=== PATIENT | male | born 2000 | race Caucasian/White ===

== ENCOUNTER 2020-05-03 17:18 | Emergency (ER) | payer BC ==
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
[2020-05-03 19:22] LABS: ANION GAP 12.7 mEq/L (7-13); CHLORIDE,CL 103 mmol/L (98-107); SODIUM,NA 143 mmol/L (136-145)
[2020-05-03 19:30] LABS: ACETAMINOPHEN 0 ug/mL (10-30 (Therapeutic))
== END 2020-05-03 22:07 | disposition home or self-care (01) ==
LOC: DL.ED 17:18
DX: F43.0 Acute stress reaction (principal); F43.20 Adjustment disorder, unspecified
CPT/HCPCS: 36415; 80053; 80305-QW; 80307; 81003; 83735; 84443; 85025; 99285

== ENCOUNTER 2020-06-22 21:49 | Emergency (ER) | payer BC ==
[2020-06-22 23:03] LABS: ANION GAP 13.3 mEq/L (7-13); CHLORIDE,CL 100 mmol/L (98-107); SODIUM,NA 140 mmol/L (136-145)
[2020-06-22] MEDS ORDERED: LORazepam 1 MG Tab PO ONE (23:52)
--- NOTE | 2020-06-23 00:55 | EDM.PDOCBH ---
ED HPI GENERAL MEDICAL PROBLEM - General Chief Complaint: Behavioral/Psych Stated Complaint: HIGH ANXIETY Time Seen by Provider: 06/22/20 22:05 Source of Information: Reports: Patient, Family, RN, RN Notes Reviewed History Limitations: Reports: Altered Mental Status - History of Present Illness INITIAL COMMENTS - FREE TEXT/NARRATIVE: Pt presents to ER with c/o anxiety. Patient was brought to the ER by his father. Upon interviewing the patient he is having grandiose thoughts, is paranoid, delusional, and appears to be in a manic state. Eula from the [facility] is in the department for other reasons, and was asked to come in and interview the patient with the telegraphic typewriter repairer. Also with visiting with the patient's father, the patient has been diagnosed with Schizophrenia. Patient apparently has stopped taking his medications in . Onset: Gradual - Related Data Allergies Allergy/AdvReac Type Severity Reaction Status Date / Time No Known Allergies Allergy Verified 05/03/20 17:43 Home Meds: Home Meds . [Unable to Verify Home Med List] 05/03/20 [History] Past Medical History Psychiatric History: Reports: Addiction, Anxiety, Depression, Emotional Problems, Psych Hospitalization(s), Schizophrenia, Suicidal Ideation - Past Surgical History Other HEENT Surgeries/Procedures: [place] tooth pulled-out in december 2017 Social & Family History - Family History Family Medical History: Unobtainable - Tobacco Use Tobacco Use Status *Q: Current Some Day Tobacco User Years of Tobacco use: 5 Packs/Tins Daily: 0.1 Second Hand Smoke Exposure: Yes - Caffeine Use Caffeine Use: Reports: None - Recreational Drug Use Recreational Drug Use: Yes Drug Use in Last 12 Months: Yes Recreational Drug Type: Reports: Marijuana/Hashish Recreational Drug Use Frequency: Rarely - Living Situation & Occupation Living situation: Reports: with Family Occupation: Unemployed ED ROS GENERAL - Review of Systems Review Of Systems: Comprehensive ROS is negative, except as noted in HPI. ED EXAM, BEHAVIORAL HEALTH - Physical Exam Exam: See Below Exam Limited By: Altered Mental Status General Appearance: Alert, WD/WN, Anxious, Moderate Distress Eye Exam: Bilateral Eye: EOMI, Normal Inspection Ears: Normal External Exam, Hearing Grossly Normal Nose: Normal Inspection Throat/Mouth: Normal Inspection, Normal Voice, No Airway Compromise Head: Atraumatic, Normocephalic Neck: Normal Inspection, Supple, Non-Tender, Full Range of Motion Respiratory/Chest: No Respiratory Distress, Lungs Clear, Normal Breath Sounds, No Accessory Muscle Use, Chest Non-Tender Cardiovascular: Normal Peripheral Pulses, Regular Rate, Rhythm, No Edema, No Gallop, No JVD, No Murmur, No Rub GI/Abdominal: Normal Bowel Sounds, Soft, Non-Tender (Male) Exam: Deferred Rectal (Males) Exam: Deferred Back Exam: Normal Inspection, Full Range of Motion, NT Extremities: Normal Inspection, Normal Range of Motion, Non-Tender, Normal Capillary Refill, No Pedal Edema Neurological: Alert, Inattentive Psychiatric: Alert, Depressed Mood, Restless, Agitated, Inattentive, Flight of Ideas, Grandiose Thoughts, Paranoid Thoughts Skin Exam: Warm, Dry, Intact, Normal color, No rash COURSE, BEHAVIORAL HEALTH COMP - Course Vital Signs: Last Vital Signs Temp 99.2 F 06/22/20 21:54 Pulse 120 H 06/22/20 21:54 Resp 20 06/22/20 21:54 BP 135/89 06/22/20 21:54 Pulse Ox 99 06/22/20 21:54 Orders, Labs, Meds: Laboratory Tests 06/22/20 06/22/20 06/22/20 Range/Units 22:35 22:35 22:35 WBC 14.4 H (5.0-10.0) 10^3/uL RBC 5.33 (4.6-6.2) 10^6/uL Hgb 15.7 (14.0-18.0) g/dL Hct 44.5 (40.0-54.0) % MCV 83.5 (80-100) fL MCH 29.5 (27.0-34.0) pg MCHC 35.3 H (33.0-35.0) g/dL Plt Count 341 (150-450) 10^3/uL Neut % (Auto) 73.7 (42.2-75.2) % Lymph % (Auto) 14.4 L (20.5-50.1) % [place] % (Auto) 11.5 H (2-8) % Eos % (Auto) 0.3 L (1.0-3.0) % Baso % (Auto) 0.1 (0.0-1.0) % Sodium 140 (136-145) mmol/L Potassium 3.3 L (3.5-5.1) mmol/L Chloride 100 (98-107) mmol/L Carbon Dioxide 30 (21-32) mmol/L Anion Gap 13.3 H (7-13) mEq/L BUN 7 (7-18) mg/dL Creatinine 1.05 (0.70-1.30) mg/dL Est Cr Clr Drug Dosing 133.01 mL/min Estimated GFR (MDRD) > 60 BUN/Creatinine Ratio 6.7 (No establ ref range) Glucose 107 H (74-99) mg/dL Calcium 9.1 (8.5-10.1) mg/dL Total Bilirubin 0.5 (0.2-1.0) mg/dL AST 12 L (15-37) U/L ALT 13 L (16-63) U/L Alkaline Phosphatase 87 (46-116) U/L Total Protein 7.9 (6.4-8.2) g/dL Albumin 4.3 (3.4-5.0) g/dL Globulin 3.6 Albumin/Globulin Ratio 1.2 Salicylates (2.8-20(Therapeutic)) mg/dL Urine Opiates Screen (NEGATIVE) Ur Oxycodone Screen (NEGATIVE) Urine Methadone Screen (NEGATIVE) Acetaminophen 0 L (10-30 (Therapeutic)) ug/mL Ur Barbiturates Screen (NEGATIVE) U Tricyclic Antidepress (NEGATIVE) Ur Phencyclidine Scrn (NEGATIVE) Ur Amphetamine Screen (NEGATIVE) U Methamphetamines Scrn (NEGATIVE) Urine MDMA Screen (NEGATIVE) U Benzodiazepines Scrn (NEGATIVE) Urine Cocaine Screen (NEGATIVE) U Marijuana (THC) Screen (NEGATIVE) Ethyl Alcohol < 3 (0) mg/dL SARS CoV-2 RNA Rapid STEPHANIE (NEGATIVE) 06/22/20 06/22/20 06/23/20 Range/Units 22:35 22:42 00:14 WBC (5.0-10.0) 10^3/uL RBC (4.6-6.2) 10^6/uL Hgb (14.0-18.0) g/dL Hct (40.0-54.0) % MCV (80-100) fL MCH (27.0-34.0) pg MCHC (33.0-35.0) g/dL Plt Count (150-450) 10^3/uL Neut % (Auto) (42.2-75.2) % Lymph % (Auto) (20.5-50.1) % [place] % (Auto) (2-8) % Eos % (Auto) (1.0-3.0) % Baso % (Auto) (0.0-1.0) % Sodium (136-145) mmol/L Potassium (3.5-5.1) mmol/L Chloride (98-107) mmol/L Carbon Dioxide (21-32) mmol/L Anion Gap (7-13) mEq/L BUN (7-18) mg/dL Creatinine (0.70-1.30) mg/dL Est Cr Clr Drug Dosing mL/min Estimated GFR (MDRD) BUN/Creatinine Ratio (No establ ref range) Glucose (74-99) mg/dL Calcium (8.5-10.1) mg/dL Total Bilirubin (0.2-1.0) mg/dL AST (15-37) U/L ALT (16-63) U/L Alkaline Phosphatase (46-116) U/L Total Protein (6.4-8.2) g/dL Albumin (3.4-5.0) g/dL Globulin Albumin/Globulin Ratio Salicylates < 2.8 L (2.8-20(Therapeutic)) mg/dL Urine Opiates Screen Negative (NEGATIVE) Ur Oxycodone Screen Negative (NEGATIVE) Urine Methadone Screen Negative (NEGATIVE) Acetaminophen (10-30 (Therapeutic)) ug/mL Ur Barbiturates Screen Negative (NEGATIVE) U Tricyclic Antidepress Negative (NEGATIVE) Ur Phencyclidine Scrn Negative (NEGATIVE) Ur Amphetamine Screen Negative (NEGATIVE) U Methamphetamines Scrn Negative (NEGATIVE) Urine MDMA Screen Negative (NEGATIVE) U Benzodiazepines Scrn Negative (NEGATIVE) Urine Cocaine Screen Negative (NEGATIVE) U Marijuana (THC) Screen Negative (NEGATIVE) Ethyl Alcohol (0) mg/dL SARS CoV-2 RNA Rapid STEPHANIE Negative (NEGATIVE) Medications Discontinued Medications Generic Name Dose Route Start Last Admin Trade Name Freq PRN Reason Stop Dose Admin Lorazepam 1 mg 06/22/20 23:52 06/23/20 00:09 Ativan PO 06/22/20 23:53 1 mg ONETIME ONE Administration Lorazepam 2 mg 06/23/20 02:33 Ativan IVPUSH 06/23/20 02:34 ONETIME ONE Lorazepam Confirm 06/23/20 02:34 06/23/20 03:02 Ativan Administered 06/23/20 02:35 Not Given Dose 2 mg .ROUTE .STK-MED ONE Lorazepam 2 mg 06/23/20 02:56 06/23/20 03:01 Ativan IM 06/23/20 02:57 2 mg ONETIME ONE Administration Discharge vs Psych Eval/Treatment:: 06/23/20 00:59 Patient is medically stable at this time to be transferred via ambulance to [facility] to the psych unit. 06/23/20 03:22 Patient case was discussed with Dr. Burns at [facility] and he accepted the patient for transfer. Patient transferred via [facility]. Departure - Departure Time of Disposition: 03:15 Disposition: DC/Tfer to Psych Hosp/Unit 65 Condition: Fair Clinical Impression: Anxiety, Delusional disorder Schizophrenia Qualifiers: Schizophrenia type: unspecified Qualified Code(s): F20.9 - Schizophrenia, unspecified - Discharge Information *PRESCRIPTION DRUG MONITORING PROGRAM REVIEWED*: No *COPY OF PRESCRIPTION DRUG MONITORING REPORT IN PATIENT ALEX: No Referrals: PCP,None [Primary Care Provider] - Forms: ED Department Discharge, Interfacility Transfer [facility] Sepsis Event Note (ED) - Evaluation Sepsis Screening Result: No Definite Risk - Focused Exam Vital Signs: Vital Signs Temp Pulse Resp BP Pulse Ox 06/22/20 21:54 99.2 F 120 H 20 135/89 99
[2020-06-23] MEDS ORDERED: LORazepam 2 MG/ML SDV IVPUSH ONE (02:33)
[2020-06-23] MEDS ORDERED: LORazepam 2 MG/ML SDV ONE (02:34)
[2020-06-23] MEDS ORDERED: LORazepam 2 MG/ML SDV IM ONE (02:56)
== END 2020-06-23 03:10 ==
LOC: DL.ED 21:49
DX: F41.9 Anxiety disorder, unspecified (principal); F22 Delusional disorders; F20.9 Schizophrenia, unspecified; Z20.828 Contact with and (suspected) exposure to other viral communicable diseases; F17.210 Nicotine dependence, cigarettes, uncomplicated
CPT/HCPCS: 36415; 80053; 80305; 80307; 85025; 87635; 96372; 99285; A9270; J2060; U0002

== ENCOUNTER 2020-07-24 20:47 | Emergency (ER) | payer BC ==
[2020-07-24 22:23] LABS: CHLORIDE,CL 102 mmol/L (98-107); SODIUM,NA 139 mmol/L (136-145)
== END 2020-07-24 23:49 | disposition left against medical advice (07) ==
LOC: DL.ED 20:47
DX: Z53.21 Procedure and treatment not carried out due to patient leaving prior to being seen by health care provider (principal)
CPT/HCPCS: 36415; 80053; 80305-QW; 80307; 81003; 85025

== ENCOUNTER 2022-07-26 11:06 | Emergency (ER) | payer BC | END 2022-07-26 12:54 | disposition home or self-care (01) | LOC: DL.ED 11:06 | DX: S82.832A Other fracture of upper and lower end of left fibula, initial encounter for closed fracture (principal); Z72.0 Tobacco use; Z88.0 Allergy status to penicillin; Z88.1 Allergy status to other antibiotic agents; W00.0XXA Fall on same level due to ice and snow, initial encounter | CPT/HCPCS: 29515; 73610-LT; 99283 ==